=== PATIENT | female | born 1945 | race Two or more races ===

== ENCOUNTER 2018-11-26 07:39 | Day surgery (SDC) | payer MEDICARE, OTHER ==
[~2018-11-26] VITALS: Ht 149.9 cm; Wt 60.1 kg
[~2018-11-26 07:39] MED LIST: LIDOCAINE 2% (SDV) 5 ML INJ ONE
[2018-11-26 08:45] VITALS: Ht 149.9 cm; Wt 60.1 kg
[2018-11-26] MEDS ORDERED: BENA40TA56 PO (08:51)
[2018-11-26] MEDS ORDERED: SIMV20TA2 PO (08:51)
[2018-11-26] MEDS ORDERED: AMLO5TAB4 PO (08:51)
[2018-11-26] MEDS ORDERED: LEVO75TA5 PO (08:51)
[2018-11-26] MEDS ORDERED: RANI300T3 PO (08:51)
[2018-11-26] MEDS ORDERED: OMEP40CA6 PO (08:51)
[2018-11-26 09:17] VITALS: BP 160/70; PULSE 66; RESP 18
--- NOTE | 2018-11-26 09:17 | PREAC ---
Date/Time of Note Date/Time of Note DATE: 11/26/18 TIME: 09:16 Anesthesia Eval and Record Evaluation Time Pre-Procedure Interview DATE: 11/26/18 TIME: 09:16 Age 73 Sex female NPO: 8 hrs Preoperative diagnosis gerd Planned procedure egd, colonoscopy Past Medical History Past Medical History: Includes Cardio: HTN, Dyslipidemia Endo: Hypothyroid GI: GERD Surgery & Anesthesia Issues No known issue Meds Anticoagulation: No Beta Lam within 24 hr: No Reason Beta Lam not given: Pt. not on B-Lam Reported Medications Ranitidine Hcl* (Zantac*) 300 Mg Tablet, 300 MG PO HS, #30 TAB 11/26/18 Omeprazole* (Omeprazole*) 40 Mg Capsule.dr, 40 MG PO DAILY, #30 CAP 11/26/18 Simvastatin (Simvastatin) 20 Mg Tablet, 20 MG PO DAILY, #30 TAB 11/26/18 Levothyroxine Sodium* (Levothyroxine Sodium*) 75 Mcg Tablet, 75 MCG PO BEFORE BREAKFAST, #30 TAB 11/26/18 Benazepril Hcl* (Benazepril Hcl*) 40 Mg Tablet, 40 MG PO DAILY, #30 TAB 11/26/18 Amlodipine Besylate* (Norvasc*) 5 Mg Tablet, 5 MG PO DAILY, TAB 11/26/18 Meds reviewed: Yes Allergies Coded Allergies: No Known Allergy (Unverified , 11/26/18) Allergies Reviewed: Yes Labs/Studies Labs Reviewed: Reviewed by anesthesiologist test: Negative Studies: ECG Pre-procedure Exam Airway: Adequate mouth opening, Adequate thyromental dist Mallampati: Mallampati II Teeth: Normal Lung: Normal Heart: Normal ASA Physical Status ASA physical status: 3 Emergency: None Planned Anesthetic General/MAC: Mask Pre-operative Attestations Prior to commencing anesthesia and surgery, the patient was re-evaluated, there was verification of: *The patient's identity *The results of appropriate recent lab work and preoperative vital signs *The above evaluation not changing prior to induction *Anesthetic plan, risk benefits, alternative and complications discussed with patient/family; questions answered; patient/family understands, accepts and wishes to proceed. GIANA RIVAS Nov 26, 2018 09:17
[2018-11-26] MEDS ORDERED: PROPOFOL 40 ML ONE (09:20)
[2018-11-26 10:47] VITALS: BP 186/72; RESP 20
--- NOTE | 2018-11-26 12:09 | PAC ---
Date/Time of Note Date/Time of Note DATE: 11/26/18 TIME: 12:09 Post-Anesthesia Notes Post-Anesthesia Note Last documented vital signs Vital Signs Date Temp Pulse Resp B/P (MAP) Pulse Ox O2 O2 Flow FiO2 Time Delivery Rate 11/26/18 20 186/72 95 10:47 (110) 11/26/18 98.0 66 Room Air 09:17 Activity: WNL Respiratory function: WNL Cardiovascular function: WNL Mental status: Baseline Pain reasonably controlled: Yes Hydration appropriate: Yes Nausea/Vomiting absent: Yes GIANA RIVAS Nov 26, 2018 12:09
== END 2018-11-26 11:58 | disposition home or self-care (01) ==
LOC: GIL 07:39
PROVIDERS: ATTEND Internal Medicine Gastroenterology
DX: R19.4 Change in bowel habit (principal); K29.50 Unspecified chronic gastritis without bleeding; K21.9 Gastro-esophageal reflux disease without esophagitis; K64.8 Other hemorrhoids; I10 Essential (primary) hypertension; E03.9 Hypothyroidism, unspecified
CPT/HCPCS: 88305; 88312

== ENCOUNTER 2019-02-19 09:51 | Emergency (ER) | payer MEDICARE, OTHER ==
[~2019-02-19] VITALS: Ht 152.4 cm; Wt 59.1 kg
[~2019-02-19 09:51] MED LIST changes: +AMLO5TAB4 PO; +BENA40TA56 PO; +LEVO75TA5 PO; -LIDOCAINE 2% (SDV) 5 ML INJ ONE; +OMEP40CA6 PO; +RANI300T3 PO; +SIMV20TA2 PO
[2019-02-19 10:05] VITALS: BP 181/76; PULSE 61; RESP 18; Ht 152.4 cm; Wt 59.1 kg
[2019-02-19] MEDS ORDERED: HYDR-3029 PO (10:34)
[2019-02-19] MEDS ORDERED: HC30CR25 TOP (10:34)
--- NOTE | 2019-02-19 11:38 | ERD ---
ER Documentation Chief Complaint Chief Complaint GENERALIZED RASH FOR 2 DAYS WITH ITCHING HPI 74-year-old female presenting with generalized rash to the sun exposed regions of her chest and arms. Patient noticed this rash 2 days ago and is very itchy in nature. She has not used medications on the rash. No one at home has a similar rash. She has no fevers. Denies other medical problems. NKDA. Surgical history denies. Social history denies ROS All systems reviewed and are negative except as per history of present illness. Medications Home Meds Active Scripts Hydrocortisone* Topical (Hydrocortisone* Topical) 2.5%-28.3 Gm Cream..g., 1 APPLIC TOP BID, #1 TUB Prov:PORFIRIO DAY PA-C 02/19/19 Hydroxyzine Hcl* (Hydroxyzine Hcl*) 10 Mg Tablet, 10 MG PO Q6H PRN for ITCHING, #30 TAB Prov:PORFIRIO DAY PA-C 02/19/19 Reported Medications Ranitidine Hcl* (Zantac*) 300 Mg Tablet, 300 MG PO HS, #30 TAB 11/26/18 Omeprazole* (Omeprazole*) 40 Mg Capsule.dr, 40 MG PO DAILY, #30 CAP 11/26/18 Simvastatin (Simvastatin) 20 Mg Tablet, 20 MG PO DAILY, #30 TAB 11/26/18 Levothyroxine Sodium* (Levothyroxine Sodium*) 75 Mcg Tablet, 75 MCG PO BEFORE BREAKFAST, #30 TAB 11/26/18 Benazepril Hcl* (Benazepril Hcl*) 40 Mg Tablet, 40 MG PO DAILY, #30 TAB 11/26/18 Amlodipine Besylate* (Norvasc*) 5 Mg Tablet, 5 MG PO DAILY, TAB 11/26/18 Allergies Allergies: Coded Allergies: No Known Allergy (Unverified , 11/26/18) PMhx/Soc History of Surgery: Yes (TUBAL LIGATION, HYSTERECTOMY, THYROID SX) Anesthesia Reaction: No Hx Neurological Disorder: No Hx Respiratory Disorders: No Hx Cardiac Disorders: Yes (HYPERTENSION) Hx Psychiatric Problems: No Hx Miscellaneous Medical Probl: Yes (HX OF THYROID CA, HYPERLIPIDEMIA) Hx Alcohol Use: No Hx Substance Use: No Hx Tobacco Use: No Smoking Status: Never smoker FmHx Family History: No diabetes, No coronary disease, No other Physical Exam Vitals Vital Signs Date Temp Pulse Resp B/P (MAP) Pulse Ox O2 O2 Flow FiO2 Time Delivery Rate 02/19/19 98.8 61 18 181/76 100 10:05 (111) Physical Exam GENERAL: The patient is well-appearing, well-nourished, in no acute distress CHEST: Clear to auscultation bilaterally. There are no rales, wheezes or rhonchi. HEART: Regular rate and rhythm. No murmurs, clicks, rubs or gallops. SKIN: Erythematous macular rash noted on forearms and chest. No vesicles or pustules. Procedures/MDM MDM: 74-year-old female presenting with rash. Patient's rash is indicative of heat rash as it is only on the sun exposed regions. Patient is discharged with supportive medications and I have low suspicion for bacterial or life- threatening rash. Patient is told if symptoms change or worsen to return immediately to the ER. Patient is discharged with supportive medications. All questions answered at discharge Departure Diagnosis: Primary Impression: Heat rash Condition: Stable Patient Instructions: Heat Rash [Child] Referrals: [facility] YOU HAVE RECEIVED A MEDICAL SCREENING EXAM AND THE RESULTS INDICATE THAT YOU DO NOT HAVE A CONDITION THAT REQUIRES URGENT TREATMENT IN THE EMERGENCY DEPARTMENT. FURTHER EVALUATION AND TREATMENT OF YOUR CONDITION CAN WAIT UNTIL YOU ARE SEEN IN YOUR DOCTORS OFFICE WITHIN THE NEXT 1-2 DAYS. IT IS YOUR RESPONSIBILITY TO MAKE AN APPOINTMENT FOR FOLOW-UP CARE. IF YOU HAVE A PRIMARY DOCTOR --you should call your primary doctor and schedule an appointment IF YOU DO NOT HAVE A PRIMARY DOCTOR YOU CAN CALL OUR PHYSICIAN REFERRAL HOTLINE AT IF YOU CAN NOT AFFORD TO SEE A PHYSICIAN YOU CAN CHOSE FROM THE FOLLOWING [facility] [address] [facility] [address] [facility] [facility] [address] [facility] [address] [facility] [address] [facility] [facility]. [address] Additional Instructions: FOLLOW UP WITH YOUR PRIMARY CARE PHYSICIAN TOMORROW.Return to this facility if you are not improving as expected. PORFIRIO DAY PA-C Feb 19, 2019 11:38
== END 2019-02-19 11:13 | disposition home or self-care (01) ==
LOC: FTE 09:51
DX: L74.0 Miliaria rubra (principal); I10 Essential (primary) hypertension; Z85.850 Personal history of malignant neoplasm of thyroid
CPT/HCPCS: 99283